=== PATIENT | male | born 1965 | race Caucasian/White ===

== ENCOUNTER 2018-11-24 04:24 | Emergency (ER) | payer SELFPAY ==
[~2018-11-24] VITALS: Ht 175.3 cm; Wt 127.6 kg
[2018-11-24 04:27] VITALS: BP 137/92
[2018-11-24] MEDS ORDERED: HYDROcodone/APAP 5/325 TABLET ONE (05:15)
--- NOTE | 2018-11-24 05:28 | NUR ---
Rx given. D/c instrutions with prescription x1 given. Instructed pt to f/u with a dentist, pt said "it's hard to find a dentist", resources advised, pt has a phone he can use to make calls. Addressed all questions/concerns, verbalized understanding.
[2018-11-24] MEDS ORDERED: HYDROcodone/APAP 5/325 TABLET PO ONE (05:30)
== END 2018-11-24 05:48 | disposition home or self-care (01) ==
LOC: ED 05:27
DX: K08.89 Other specified disorders of teeth and supporting structures (principal)
CPT/HCPCS: 99283